=== PATIENT | female | born 1965 | race Caucasian/White ===

== ENCOUNTER 2025-06-02 11:12 | Emergency (ER) | payer MEDICARE, OTHER, SELFPAY ==
[2025-06-02 11:12] VITALS: BP 126/80
--- NOTE | 2025-06-02 13:02 | ED.GENMED ---
History of Present Illness
General
Chief Complaint: Abdominal Symptoms
Source: patient
Exam Limitations: none
Time Seen by Provider: 06/02/25 12:28
Nursing documentation reviewed up to this point in time: agreed with
History of Present Illness
History of Present Illness:
Patient is a 59 yr old female past medical history of CAD, hypertension hyperlipidemia presents to the ER for nausea vomiting. She woke up vomiting this morning and has vomited multiple times. She is very nauseous. She denies abdominal pain.
She has very minimal headache however did not have a headache prior to vomiting. She denies any recent illness fever chills. No other sick contacts. She is visiting from the [facility] and went out to eat [place] last night nobody else is vomiting.
No diarrhea. She denies any abdominal pain.
She does report she is scheduled for cardiac catheterization on Saturday because of an elevated calcium score.
She had no chest pain or shortness of breath with symptoms
Phy Exam
General Physical Exam
General Presentation: no apparent distress
General age: appears stated age
General Skin: warm and dry
General Habitus: normal
General Mental: alert
General Hydration: appears well hydrated
Cardiovascular Exam
Cardiovascular Exam: regular rate/rhythm, no murmur and normal peripheral pulses
Pulmonary Exam
Pulmonary Exam: lungs clear and no respiratory distress
Gastrointestinal Exam
Gastrointestinal Exam: non tender and soft
Neurological Exam
Neurological Exam: alert and oriented x3
Musculoskeletal Exam
Musculoskeletal Exam: full ROM
Skin Exam
Skin Exam: normal color and warm/dry
Psychiatric Exam
Psychiatric Exam: normal mood/affect
Course
Orders/Labs/Results
Orders:
Orders
06/02/25 13:04
Electrocardiogram (*1) Stat
Reason for Study: Abdominal Pain
Cardiac Monitoring- Treatment ONCE
EKG- Treatment ONCE
IV Insert/Care/Rem.- Treatment PRN
0.9% Sodium Chloride 1000 ml [Nss] 1,000 ml IV BOLUS
Ondansetron Injectable [Zofran] 4 mg IV NOW STA
06/02/25 13:16
Complete Blood Count/With Diff Urgent
Comprehensive Metabolic Panel Urgent
06/02/25 14:04
Troponin I Urgent
06/02/25 14:45
Ondansetron Injectable [Zofran] 4 mg IV NOW STA
06/02/25 17:01
COVID-19 Antigen Urgent
Source: Nasal Swab
Influenza A+B Rapid Molecular Urgent
BALA Source: Nasal Swab
Specimen Description:
06/02/25 17:40
Ondansetron Orally Disint [Zofran Odt (Orally Disintegrating)] 4 mg PO NOW STA
Abnormal Lab Results
06/02/25
13:16
Absolute Neuts (auto) 7.5 H 10^3/uL
(1.4-6.5)
Absolute Lymphs (auto) 0.6 L 10^3/uL
(1.2-3.4)
Neutrophils % 88.3 H %
(42.2-75.2)
Lymphocytes % 6.7 L %
(20.5-51.1)
Creatinine 0.5 L mg/dL
(0.6-1.0)
Glucose 114 H mg/dl
(70-99)
ALT 58 H U/L
(0-35)
06/02/25 13:16
06/02/25 13:16
Vital Signs
Initial and Last Documented VS:
Initial Vital Signs
Temp Pulse Resp BP Pulse Ox
97.8 F 93 18 126/80 100
06/02/25 11:12 06/02/25 11:12 06/02/25 11:12 06/02/25 11:12 06/02/25 11:12
Last Documented Vital Signs
Temp Pulse Resp BP Pulse Ox
97.8 F 78 13 101/53 100
06/02/25 11:12 06/02/25 14:46 06/02/25 14:30 06/02/25 14:00 06/02/25 13:04
MDM/Problems Addressed
Differential Diagnosis Includes:
Not limited to viral syndrome,food related illness
MDM/Problems Addressed:
Patient presented with nausea and vomiting however after Zofran and fluids feeling better tolerated oral fluids. She denies any fever chills no recent URI symptoms no other sick contacts at home COVID flu are negative. No chest pain shortness of
breath.
she is scheduled for cardiac cath for an elevated calcium score Saturday however no chest pain cardiac troponin was done and unremarkable, no acute findings on EKG.
likely viral syndrome versus food related
Chronic conditions affecting care:
CAD
*Pulse Oximetry
SaO2: 100
Oxygen Mode of Delivery: Room air
Patient hypoxic: no
*EKG
Interpreted by ED Provider?: Yes
Heart Rate: 80
Rate: normal
Rhythm: sinus
Ischemia: no ischemia
*Critical Care Note
Total Time (30-74mins, 75-104mins- exclusive of procedures): Not Applicable
ED Attending Note
-
Portions of this chart may have been created with voice recognition software.� Occasional wrong word or��sound alike� substitutions may have occurred due to the inherent limitations of voice recognition software.
Discharge Plan
Departure
Patient Disposition: Home (Routine Discharge)
Date of Disposition: 06/02/25
Time of Disposition: 17:45
Patient with high blood pressure during this ER visit?: No
Condition: Fair
Covid-19: Not Applicable
Discharge Problem:
Nausea & vomiting
Instructions: Clear Liquid Diet, Poca Diet, Nausea and Vomiting, Adult (DC)
Prescriptions:
New
ondansetron 4 mg tablet,disintegrating
4 mg PO Q8H PRN (Reason: nausea and vomiting) Qty: 10 0RF
Referrals:
NONE,* [Family Provider, Internal Medicine]
Activity Restrictions/Additional Instructions:
As discussed Zofran as needed for nausea. Clear fluids for the next 24 hours followed by bland solid foods. Follow-up with your family doctor in the next several days return if any worsening of symptoms. 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
were here in the ER for vomiting.
Interventions
Interventions:
*Risk Screen - Suicide Last Done: 06/02/25 11:12
*General Assessment Last Done: 06/02/25 11:12
Discharge Date and Time
Print Language: VIET[place]
[2025-06-02] MEDS: NSS 1000 IV (13:17)
[2025-06-02] MEDS: ZOFRAN 4 MG IV ×2 (13:17→14:54)
[2025-06-02 13:20] VITALS: BMI 30.1
[2025-06-02 13:25] VITALS: BP 111/70
[2025-06-02 13:33] LABS: Hematocrit 37.4 % (37.0-47.0); Hemoglobin 12.9 g/dL (12.0-16.0); Mean Corp Hgb Conc. 34.5 g/dL (33.0-37.0); Mean Corpuscular Volume 85.4 fL (81.0-99.0); Nucleated Red Blood Cells % 0 %; Platelet Count 223 10^3/uL (130-400); Red Cell Dist. Width 11.9 % (11.5-14.5)
[2025-06-02 13:50] LABS: ALT (SGPT) 58 U/L (0-35); AST (SGOT) 31 U/L (14-36); Albumin 4.9 g/dl (3.5-5.0); Alkaline Phosphatase 89 U/L (38-126); Blood Urea Nitrogen 14 mg/dl (7-17); Calcium 9.9 mg/dl (8.4-10.2); Carbon Dioxide 26 mmol/L (22-30); Chloride 104 mmol/L (98-107); Estimated Creatinine Clearance 109 ml/min; Glucose 114 mg/dl (70-99); Potassium 4.6 mmol/L (3.5-5.1); Sodium 138 mmol/L (135-145); Total Protein 7.6 g/dl (6.3-8.2); eGFR > 60.00
[2025-06-02 14:00] VITALS: BP 101/53
[2025-06-02 14:38] LABS: Troponin I < 0.012 ng/ml
[2025-06-02 15:00] VITALS: BP 109/67
[2025-06-02 16:00] VITALS: BP 109/59
[2025-06-02 17:25] LABS: COVID-19 Antigen Negative (Negative)
[2025-06-02] MEDS: ZOFRAN ODT (ORALLY DISINTEGRATING) 4 MG PO (17:56)
== END 2025-06-02 18:21 | disposition home or self-care (01) ==
LOC: EMR 11:12
PROVIDERS: Nurse Practitioner; EMERGENCY PHYSICIAN Emergency Medicine
DX: R11.2 Nausea with vomiting, unspecified (principal); I25.10 Atherosclerotic heart disease of native coronary artery without angina pectoris; I10 Essential (primary) hypertension; E78.5 Hyperlipidemia, unspecified; Z11.52 Encounter for screening for COVID-19
CPT/HCPCS: 96374; 96376; 96361; 99284; 80053; 84484; 85025; 87502; 87811; 93005